=== PATIENT | male | born 1985 | race African-American/Black ===

== ENCOUNTER 2024-08-25 09:47 | Emergency (ER) | payer OTHER ==
[~2024-08-25] VITALS: Ht 175.3 cm; Wt 82.0 kg
[2024-08-25 09:53] VITALS: O2SAT 98
[2024-08-25 11:48] VITALS: BP 132/70; PULSE 87; RESP 16; TEMP 37.05852; O2SAT 98
== END 2024-08-25 12:04 ==
LOC: ER 09:47
DX: S69.91XA Unspecified injury of right wrist, hand and finger(s), initial encounter (principal); W19.XXXA Unspecified fall, initial encounter; Y93.02 Activity, running; Y92.89 Other specified places as the place of occurrence of the external cause; Y99.8 Other external cause status
CPT/HCPCS: 99283